=== PATIENT | female | born 1990 | race African-American/Black ===

== ENCOUNTER 2019-02-03 06:12 | Inpatient (IN) ==
[2019-02-03] MEDS ORDERED: ONDANSETRON 4 MG/2 ML VIAL IV PRN (06:23)
[2019-02-03] MEDS ORDERED: OXYTOCIN/LR 20 UNIT/1,000 ML BAG IV SCH (06:30)
[2019-02-03] MEDS: LACTATED RINGERS 1,000 ML IV SCH ×2 (06:41→12:55)
[2019-02-03 06:51] LABS: Basophils # 0.1 10*3/uL (0.0-0.2); Basophils % 0.4 % (0.0-0.8); Eosinophils # 0.2 10*3/uL (0.0-0.87); Eosinophils % 1.3 % (0.00-10.9); Hematocrit 32.4 VOL% (35.7-47.0); Hemoglobin 10.3 GM/DL (12.0-16.0); Immature Granulocytes % 1.4 %; Immature Granulocytes Absolute 0.16 #; Lymphocytes # 2.1 10*3/uL (1.4-4.0); Lymphocytes % 18.6 % (21.3-54.2); Mean Corpuscular HGB Conc 31.8 GM/DL (32-36); Mean Corpuscular Volume 86.4 FL (87-102); Mean Platelet Volume 9.4 FL (9.6-12.0); Monocytes % 7.8 % (1.7-12.7); Neutrophils % 70.5 % (38.7-73.9); Platelet Count 390 T/CUMM (130-400); Red Blood Count 3.75 MC/CUMM (3.8-5.5); White Blood Count 11.3 T/CUMM (4-12)
[2019-02-03 07:30] LABS: Albumin 2.6 G/DL (3.4-5.0); Bilirubin,Total 0.5 MG/DL (0.2-1.0); Calcium 8.4 MG/DL (8.5-10.1); Osmolality,Calculated 274.5 MOS/KG (273-304); Total Protein 6.3 G/DL (6.4-8.3)
[2019-02-03] MEDS: BUTORPHANOL 2 MG/ML VIAL IV PRN ×2 (09:18→12:15)
[2019-02-03] MEDS ORDERED: LIDOCAINE 1% 50 ML VIAL ONE (13:12)
[2019-02-03] MEDS ORDERED: miSOPROStol 200 MCG TABLET ONE (13:12)
[2019-02-03] MEDS ORDERED: METHYLERGONOVINE 0.2 MG/1 ML AMP ONE (13:12)
[2019-02-03] MEDS ORDERED: CARBOPROST TROMETHAMINE 250 MCG/ML AMP IM ONE (13:13)
[2019-02-03 13:44] LABS: Cord Arterial Blood HCO3 25.6 MMOL/L
[2019-02-03 13:47] LABS: Cord Venous Blood HCO3 21.4 MMOL/L; Cord Venous Blood PCO2 41.4 MMHG; Cord Venous Blood PO2 38.9 MMHG
[2019-02-03] MEDS ORDERED: OXYTOCIN/LR 20 UNIT/1,000 ML BAG IV ONE ×2 (17:18→17:37)
[2019-02-03] MEDS ORDERED: MEASLES/MUMPS/RUBELLA VACCINE 0.5 ML VIAL SUBCUT ONE (17:37)
[2019-02-03] MEDS ORDERED: DIPH/TET/ACEL PERT BOOSTER VACCINE 0.5 ML VIAL IM ONE (17:37)
[2019-02-03] MEDS ORDERED: BENZOCAINE 20%/MENTHOL 0.5% SPRAY 56 GM CAN TOP PRN (17:37)
[2019-02-03] MEDS ORDERED: HYDROCORTISONE 2.5% RECTAL CREAM 30 GM TUBE TOP PRN (17:37)
[2019-02-03] MEDS ORDERED: WITCH HAZEL PADS 100/JAR TOP PRN (17:37)
[2019-02-03] MEDS ORDERED: oxyCODONE/ACETAMINOPHEN 5-325 MG TABLET PO PRN ×2 (17:37)
[2019-02-03] MEDS ORDERED: RHO(D) IMMUNE GLOBULIN 300 MCG SYRINGE IM ONE (17:37)
[2019-02-03] MEDS ORDERED: BISACODYL 10 MG SUPP RECTAL PRN (17:37)
[2019-02-03] MEDS ORDERED: ACETAMINOPHEN 325 MG TABLET PO PRN (17:37)
[2019-02-03] MEDS ORDERED: LANOLIN 50% CREAM 0.3 OZ TUBE TOP PRN (17:37)
[2019-02-03] MEDS: DOCUSATE SODIUM 100 MG CAPSULE PO SCH (20:52)
[2019-02-04 05:14] LABS: Basophils % 0.2 % (0.0-0.8); Eosinophils % 0.2 % (0.00-10.9); Hematocrit 29.4 VOL% (35.7-47.0); Hemoglobin 9.4 GM/DL (12.0-16.0); Immature Granulocytes % 1.2 %; Immature Granulocytes Absolute 0.24 #; Lymphocytes # 2.3 10*3/uL (1.4-4.0); Lymphocytes % 11.8 % (21.3-54.2); Mean Platelet Volume 10.1 FL (9.6-12.0); Monocytes % 7.4 % (1.7-12.7); Neutrophils % 79.2 % (38.7-73.9); Platelet Count 364 T/CUMM (130-400); Red Blood Count 3.42 MC/CUMM (3.8-5.5); White Blood Count 19.6 T/CUMM (4-12)
[2019-02-04] MEDS: DOCUSATE SODIUM 100 MG CAPSULE PO SCH ×2 (09:59→21:19)
[2019-02-04] MEDS: IBUPROFEN 800 MG TABLET PO PRN (21:19)
[2019-02-05 07:35] VITALS: BP 132/79
[2019-02-05] MEDS: DOCUSATE SODIUM 100 MG CAPSULE PO SCH (10:00)
[2019-02-05] MEDS: IBUPROFEN 800 MG TABLET PO PRN (10:02)
== END 2019-02-05 13:20 | disposition home or self-care (01) | DRG 807 ==
LOC: N.LDOUT 06:12 → N.LD 06:15 → N.OB 17:27
PROVIDERS: ADMIT Obstetrics & Gynecology; ATTEND Obstetrics & Gynecology